=== PATIENT | female | born 1965 | race Caucasian/White ===

== ENCOUNTER 2016-09-22 18:48 | Emergency (ER) | payer MEDICAID ==
[2016-09-22] VITALS (7 sets, daily range): BP systolic 113–127; BP diastolic 61–67; PULSE 66–70; RESP 16–18; TEMP 98.9; O2SAT 98
[~2016-09-22] VITALS: Ht 170.2 cm; Wt 130.0 kg
[~2016-09-22 18:48] MED LIST: ALBU0.086 NEB; AMLO10CA PO; AMLO2.5C PO; AZIT500T2 PO; BAYE2KIT; BENZ1CAP8 PO; BLOO1KIT65; BLOOD GLUCOSE T1 TES; BUME1TAB28 PO; DICL1GEL TOPICAL; GLIP5TAB8 PO; GLUCTAB PO; GLUCTES12; HYDR-3583 PO; HYDR12.56 PO; KLOR20TA6 PO; LIDO1CRE8 TOPICAL; LYRI100C PO; METF850T PO; ONETKIT9; ONETTES4; POTA-163 PO; PRED20 PO; TRIA37.53 PO; VARE1PAK3 PO; VENTAER INH; XANA2TAB2 PO; [UNRECOGNIZED DRUG - CODE] PO; [UNRECOGNIZED DRUG - SUPPLY]
[2016-09-22] MEDS ORDERED: PANT40TA3 PO (20:23)
[2016-09-22] MEDS ORDERED: KETOROLAC TROMETHAMINE 30 MG/ML (IVP) VIAL IV PUSH ONE (20:30)
[2016-09-22] MEDS ORDERED: SODIUM CHLORIDE 0.9% FLUSH 10 ML FLUSH IVF PRN (20:30)
[2016-09-22 21:01] LABS: AUTOMATED NEUTROPHIL # 5.6 TH/MM3 (1.8-7.7); BASOPHIL % 0.5 % (0.0-2.0); EOSINOPHIL # 0.1 TH/MM3 (0-0.4); EOSINOPHIL % 1.2 % (0.0-4.0); HEMATOCRIT 42.2 % (35.0-46.0); HEMO FLAGS DIFF FINAL; LYMPH % 32.8 % (9.0-44.0); LYMPHOCYTE # 3.1 TH/MM3 (1.0-4.8); MEAN CELL VOLUME 89.5 FL (80.0-100.0); MEAN CORPUSCULAR HEMOGLOBIN 29.7 PG (27.0-34.0); MEAN CORPUSCULAR HGB CONC 33.2 % (32.0-36.0); MONO % 6.2 % (0.0-8.0); NEUT % 59.3 % (16.0-70.0); PLATELET COUNT 168 TH/MM3 (150-450); RED BLOOD COUNT 4.72 MIL/MM3 (4.00-5.30); RED CELL DISTRIBUTION WIDTH 13.1 % (11.6-17.2); WHITE BLOOD COUNT 9.4 TH/MM3 (4.0-11.0)
--- NOTE | 2016-09-22 21:10 | PD ---
HPI Chief Complaint: Back/ Neck Pain or Injury Time Seen by Provider: 20:13 Travel History International Travel<30 days: No Contact w/Intl Traveler<30days: No Traveled to known affect area: No History of Present Illness HPI 51-year-old female with history of gastric sleeve procedure earlier this year in [facility] with over 60 pounds weight loss since then, here for evaluation of left upper back pain. Patient reports bending over and doing heavy lifting at work. For the last week she has been having an ache in her left upper back between her scapula. Pain radiates to her left shoulder laterally and anteriorly. Pain is worse with movements, is mild to moderate. She denies any known history of cardiac disease. No paresthesias or motor deficits. No fevers, cough, or recent illness. PFSH Past Medical History Asthma: Yes Diabetes: Yes (PT STATES NO LONGER DIABETIC AND OFF MEDICATIONS) Patient Takes Glucophage: No Diminished Hearing: No Hypertension: Yes (PT STATES NO LONGER HYPERTENSIVE AND OFF MEDICATIONS) Medical other: Yes (NEUROPATHY) Tetanus Vaccination: > 5 Years Influenza Vaccination: Yes ?: Unknown Menopausal: Yes Past Surgical History Abdominal Surgery: Yes (GASTRIC SLEEVE 07/01/16) Social History Alcohol Use: No Tobacco Use: Yes (/2 PPD) Substance Use: No Allergies-Medications (Allergen,Severity, Reaction): Coded Allergies: No Known Allergies (Verified , 09/22/16) Reported Meds & Prescriptions Reported Meds & Active Scripts Active Robaxin (Methocarbamol) 500 Mg Tab 500 Mg PO TID Lortab (Hydrocodone-Acetaminophen) 5-325 Mg Tab 1 Tab PO Q6H PRN Lyrica (Pregabalin) 100 Mg Cap 100 Mg PO TID Reported Pantoprazole (Pantoprazole Sodium) 40 Mg Tab 40 Mg PO DAILY Review of Systems Except as stated in HPI: all other systems reviewed are Neg Physical Exam Narrative GENERAL: Well-developed, well-nourished, comfortable, no acute distress. SKIN: Focused skin assessment warm/dry. No rash. HEAD: Atraumatic. Normocephalic. EYES: Pupils equal and round. No scleral icterus. No injection or drainage. ENT: Mucous membranes pink and moist. NECK: Trachea midline. No JVD. CARDIOVASCULAR: Regular rate and rhythm. RESPIRATORY: No accessory muscle use. Clear to auscultation. Breath sounds equal bilaterally. GASTROINTESTINAL: Abdomen soft, non-tender, nondistended. Hepatic and splenic margins not palpable. MUSCULOSKELETAL: No obvious deformities. No clubbing. No cyanosis. No edema. Moderate left mid/upper back tenderness without deformity or step-off. There is no midline vertebral step-off or tenderness. NEUROLOGICAL: Awake and alert. No obvious cranial nerve deficits. Motor grossly within normal limits. Normal speech. PSYCHIATRIC: Appropriate mood and affect; insight and judgment normal. Data Data Last Documented VS Vital Signs Date Time Temp Pulse Resp B/P Pulse Ox O2 Delivery O2 Flow Rate FiO2 09/22/16 21:07 66 18 115/64 98 Room Air 09/22/16 20:05 98.9 Orders Electrocardiogram (09/22/16 20:23) Basic Metabolic Panel (Bmp) (09/22/16 20:23) Ckmb (Isoenzyme) Profile (09/22/16 20:23) Complete Blood Count With Diff (09/22/16 20:23) Prothrombin Time / Inr (Pt) (09/22/16 20:23) Act Partial Throm Time (Ptt) (09/22/16 20:23) Troponin I (09/22/16 20:23) Chest, Single Ap (09/22/16 20:23) Ecg Monitoring (09/22/16 20:23) Bilateral Bp Monitoring (09/22/16 20:23) Iv Access Insert/Monitor (09/22/16 20:23) Oximetry (09/22/16 20:23) Oxygen Administration (09/22/16 20:23) Sodium Chloride 0.9% Flush (Ns Flush) (09/22/16 20:30) Spine, Thoracic-Ap/Lat/Sw(3vw) (09/22/16 ) Ketorolac Inj (Toradol Inj) (09/22/16 20:30) Potassium Chloride Eff (K-Lyte Cl Eff) (09/22/16 22:15) Labs Laboratory Tests Test 09/22/16 20:50 White Blood Count 9.4 TH/MM3 Red Blood Count 4.72 MIL/MM3 Hemoglobin 14.0 GM/DL Hematocrit 42.2 % Mean Corpuscular Volume 89.5 FL Mean Corpuscular Hemoglobin 29.7 PG Mean Corpuscular Hemoglobin 33.2 % Concent Red Cell Distribution Width 13.1 % Platelet Count 168 TH/MM3 Mean Platelet Volume 9.6 FL Neutrophils (%) (Auto) 59.3 % Lymphocytes (%) (Auto) 32.8 % Monocytes (%) (Auto) 6.2 % Eosinophils (%) (Auto) 1.2 % Basophils (%) (Auto) 0.5 % Neutrophils # (Auto) 5.6 TH/MM3 Lymphocytes # (Auto) 3.1 TH/MM3 Monocytes # (Auto) 0.6 TH/MM3 Eosinophils # (Auto) 0.1 TH/MM3 Basophils # (Auto) 0.0 TH/MM3 CBC Comment DIFF FINAL Differential Comment Prothrombin Time 12.0 SEC Prothromb Time International 1.1 RATIO Ratio Activated Partial 28.2 SEC Thromboplast Time Sodium Level 140 MEQ/L Potassium Level 3.0 MEQ/L Chloride Level 105 MEQ/L Carbon Dioxide Level 29.2 MEQ/L Anion Gap 6 MEQ/L Blood Urea Nitrogen 13 MG/DL Creatinine 0.72 MG/DL Estimat Glomerular Filtration 85 ML/MIN Rate Random Glucose 118 MG/DL Calcium Level 8.7 MG/DL Total Creatine Kinase 92 U/L Troponin I LESS THAN 0.02 NG/ML MDM Medical Decision Making Medical Screen Exam Complete: Yes Emergency Medical Condition: Yes Interpretation(s) EKG: Sinus, rate 62, leftward axis, normal intervals, low QRS voltages in precordial leads, no acute ischemic abnormality. Differential Diagnosis Musculoskeletal pain, ACS is likely, pneumonia, PE, pneumothorax Narrative Course Vital signs reviewed and are within normal limits. CBC is unremarkable. BMP is remarkable for potassium 3.0 which was replaced orally, otherwise unremarkable. Cardiac enzymes are negative. Chest x-ray: No evidence of acute cardio pulmonary disease. Thoracic spine x-ray: CONCLUSION: Mild scoliosis and disc centered degenerative changes of the thoracic spine. No fracture or subluxation. Patient was made aware of all findings. She reported significant improvement in symptoms after receiving a dose of IV Toradol. I do not believe her symptoms are cardiac in nature. Symptoms are more consistent with musculoskeletal origin. Patient agrees with this. She states she feels significantly improved after receiving Toradol and would like to go home. She was injected follow-up with her primary care physician this week. She was informed on when to return to the emergency department. She verbalizes understanding and agreement with plan. Diagnosis Primary Impression: Back pain Qualified Code: M54.6 - Acute left-sided thoracic back pain Additional Impression: Hypokalemia Referrals: Primary Care Physician 3 days Additional Instructions: Follow-up with your primary care physician this week. Return to the emergency department for worsening symptoms or any other concerns. Scripts Methocarbamol (Robaxin)500 Mg [id number] Mg PO TID #20 TAB Ref 0 Prov:Jorge A Bernardo MD 09/22/16 Hydrocodone-Acetaminophen (Lortab)5-325 Mg Tab1 Tab PO Q6H PRN (PAIN) #12 TAB Ref 0 Prov:Jorge A Bernardo MD 09/22/16 Disposition: 01 DISCHARGE HOME Condition: Stable Jorge A Bernardo MD Sep 22, 2016 21:10
[2016-09-22 21:22] LABS: CHLORIDE 105 MEQ/L (98-107); SODIUM (NA) 140 MEQ/L (136-145)
[2016-09-22 21:25] LABS: ANION GAP 6 MEQ/L (5-15); BICARBONATE 29.2 MEQ/L (21.0-32.0); BLOOD UREA NITROGEN 13 MG/DL (7-18)
[2016-09-22 21:27] LABS: APTT (PATIENT) 28.2 SEC (24.3-30.1); INTERNATIONAL NORMALIZED RATIO 1.1 RATIO
[2016-09-22 21:28] LABS: GLOMERULAR FILTRATION RATE 85 ML/MIN (>89)
--- NOTE | 2016-09-22 21:36 | RADRPT ---
EXAM DATE/TIME: 09/22/2016 21:17 [facility] COMPARISON: CHEST SINGLE AP, November 23, 2015, 18:34. INDICATIONS : Pain. No injury. MEDICAL HISTORY : None. SURGICAL HISTORY : None. ENCOUNTER: Initial ACUITY: 4 - 6 days PAIN SCORE: 1/10 LOCATION: Bilateral chest FINDINGS: A single view of the chest demonstrates the lungs to be symmetrically aerated without evidence of mas s, infiltrate or effusion. The cardiomediastinal contours are unremarkable. Osseous structures are intact. CONCLUSION: No evidence of acute cardiopulmonary disease. Sanchez Evans MD on September 22, 2016 at 21:34 Board Certified Radiologist. This report was verified electronically.
--- NOTE | 2016-09-22 21:37 | RADRPT ---
EXAM DATE/TIME: 09/22/2016 21:20 [facility] COMPARISON: No previous studies available for comparison. INDICATIONS : Upper back pain. No injury. MEDICAL HISTORY : None. SURGICAL HISTORY : None. ENCOUNTER: Initial ACUITY: 4 - 6 days PAIN SCORE: 8/10 LOCATION: Bilateral thoracic spine. FINDINGS: There is mild dextroconvex curvature of the thoracic spine centered around T8. No fracture or subluxa tion. Vertebral bodies have normal height. Very mild disc space narrowing seen at essentially all levels. CONCLUSION: Mild scoliosis and disc centered degenerative changes of the thoracic spine. No fracture or subluxati on. Sanchez Evans MD on September 22, 2016 at 21:35 Board Certified Radiologist. This report was verified electronically.
[2016-09-22 21:41] LABS: CREATINE KINASE 92 U/L (26-192)
[2016-09-22] MEDS ORDERED: ROBA500T PO (22:08)
[2016-09-22] MEDS ORDERED: HYDR-3533 PO (22:08)
[2016-09-22] MEDS ORDERED: POTASSIUM CHLORIDE 25 MEQ EFFERVESCENT TAB PO ONE (22:15)
--- NOTE | 2016-09-23 00:17 | EKG ---
Date Performed: 09/22/2016 Time Performed: 20:33:44 PTAGE: 51 years EKG: Sinus rhythm LOW QRS VOLTAGE IN PRECORDIAL LEADS BORDERLINE ECG PREVIOUS TRACING : 11/23/2015 18.34 Compared to prior tracing no significant change DOCTOR: Jean Marie Rushing Interpretating Date/Time 09/23/2016 00:16:47
[2016-11-04] MEDS ORDERED: KETO60IN6 IM (16:38)
[2016-11-04] MEDS ORDERED: LYRI100C PO (16:46)
== END 2016-09-22 22:43 | disposition home or self-care (01) ==
LOC: PHED 18:48
DX: M54.6 Pain in thoracic spine (principal); E87.6 Hypokalemia; F17.210 Nicotine dependence, cigarettes, uncomplicated
CPT/HCPCS: 71010; 72072; 80048; 82550; 84484; 85025; 85610; 85730; 93005; 96374; 99285; J1885

== ENCOUNTER 2016-10-12 10:55 | Emergency (ER) | payer MEDICAID ==
[~2016-10-12] VITALS: Ht 170.2 cm; Wt 126.6 kg
[~2016-10-12 10:55] MED LIST changes: -ALBU0.086 NEB; -AMLO10CA PO; -AMLO2.5C PO; -AZIT500T2 PO; -BAYE2KIT; -BENZ1CAP8 PO; -BLOO1KIT65; -BLOOD GLUCOSE T1 TES; -BUME1TAB28 PO; -DICL1GEL TOPICAL; -GLIP5TAB8 PO; -GLUCTAB PO; -GLUCTES12; +HYDR-3533 PO; -HYDR-3583 PO; -HYDR12.56 PO; -KLOR20TA6 PO; -LIDO1CRE8 TOPICAL; -METF850T PO; -ONETKIT9; -ONETTES4; +PANT40TA3 PO; -POTA-163 PO; -PRED20 PO; +ROBA500T PO; -TRIA37.53 PO; -VARE1PAK3 PO; -VENTAER INH; -XANA2TAB2 PO; -[UNRECOGNIZED DRUG - CODE] PO; -[UNRECOGNIZED DRUG - SUPPLY]
[2016-10-12 11:05] VITALS: BP 154/70; PULSE 84; RESP 18; TEMP 99.3; O2SAT 95
[2016-10-12] MEDS ORDERED: MAGICPED SWISH-SWAL (12:10)
--- NOTE | 2016-10-12 12:15 | PD ---
HPI Chief Complaint: Cold / Flu Symptoms Time Seen by Provider: 12:04 Travel History International Travel<30 days: No Contact w/Intl Traveler<30days: No Traveled to known affect area: No History of Present Illness HPI 51-year-old female presents to the emergency room for evaluation of nonproductive cough, congestion, and sore throat for the past 2 days. Patient states symptoms started 4 days ago with right-sided nasal congestion but worsened yesterday. She has been taking [id number] medications without significant relief in symptoms. Denies fever, chills, nausea, and vomiting. Cough is nonproductive. Patient states she is most upset about her throat which is extremely painful when she coughs. She denies chronic medical conditions or daily medications. Had a history of diabetes and hypertension but after weight loss surgery, those improved. PFSH Past Medical History Asthma: Yes Diabetes: Yes (PT STATES NO LONGER DIABETIC AND OFF MEDICATIONS) Patient Takes Glucophage: No Diminished Hearing: No GERD: Yes Hypertension: Yes (PT STATES NO LONGER HYPERTENSIVE AND OFF MEDICATIONS) Tetanus Vaccination: Unknown Influenza Vaccination: No ?: Not Menopausal: Yes Past Surgical History Abdominal Surgery: Yes (GASTRIC SLEEVE 07/01/16) Social History Alcohol Use: No Tobacco Use: Yes (02/09 PPD) Substance Use: No Allergies-Medications (Allergen,Severity, Reaction): Coded Allergies: No Known Allergies (Verified , 10/12/16) Reported Meds & Prescriptions Reported Meds & Active Scripts Active Lyrica (Pregabalin) 100 Mg Cap 100 Mg PO TID Reported Pantoprazole (Pantoprazole Sodium) 40 Mg Tab 40 Mg PO DAILY Review of Systems Except as stated in HPI: all other systems reviewed are Neg Physical Exam Narrative GENERAL: Well-nourished, well-developed female in no acute distress. Afebrile. Ambulatory. SKIN: Focused skin assessment warm/dry. HEAD: Normocephalic. EYES: No scleral icterus. No injection or drainage. EARS: Bilateral pinnae and external canals appear within normal limits. Left ear canal is occluded with cerumen. Right tympanic membrane without erythema, dullness or perforation. ENT: Mucosa pink and moist. Moderate erythema and edema without exudates. No uvular edema. No uvular, palatal, or tonsillar deviation. Airway patent. Nasal turbinates appear normal without nasal blood, purulent drainage or septal hematoma. NECK: Supple, trachea midline. No JVD or lymphadenopathy. CARDIOVASCULAR: Regular rate and rhythm without murmurs, gallops, or rubs. RESPIRATORY: Breath sounds equal bilaterally. No accessory muscle use. No crackles, rales, wheezes, or rhonchi. Data Data Last Documented VS Vital Signs Date Time Temp Pulse Resp B/P (MAP) Pulse Ox O2 Delivery O2 Flow Rate FiO2 10/12/16 11:05 99.3 84 18 154/70 (98) 95 MDM Medical Decision Making Medical Screen Exam Complete: Yes Emergency Medical Condition: Yes Medical Record Reviewed: Yes Differential Diagnosis Bronchitis, upper respiratory infection, pneumonia unlikely Narrative Course 51-year-old female presents to the emergency room for evaluation of nonproductive cough, congestion, and sore throat for the past 2 days. Patient states postnasal drip causing her throat hurts especially when she coughs. She is afebrile and well-appearing in the emergency room. Vital signs stable. Resting comfortably in bed with no increased work of breathing. Lungs sounds clear and equal bilaterally. No evidence of bacterial infection in the ears. Throat is moderately erythematous and edematous without exudate. Patient was offered rapid strep test but declined because of time constraints. She has had no fever and with postnasal drip, strep is unlikely. This is viral upper respiratory infection. Patient discharged with prescription for Magic mouthwash and told to follow up with a primary care physician or return for worsening symptoms. No indication for antibiotics. She understands and agrees to plan. Diagnosis Primary Impression: Upper respiratory infection Qualified Codes: J00 - Acute nasopharyngitis [common cold] Referrals: Primary Care Physician Additional Instructions: Rest and drink plenty of fluids. Use Magic mouthwash as directed, as needed for pain. Take ibuprofen with food as directed, as needed for pain. Follow-up with a primary care physician. Return to the emergency room for worsening symptoms. Med/Other Pt SpecificInfo: Prescription(s) given Scripts Brdmleezuvkmqkf-Tuctorcbs-Ius-Alum-Simeth Liq (Magic Mouthwash Pediatric/Adult Liq) 60 Ml Susp 5 ML SWISH-SWAL ACHS for Mouth sores, #60 ML 0 Refills Each 5mL contains: Diphenydramine 4.5mg, Viscous Lidocaine 2% 10mg, Maalox Advanced Regular Strength 2.7ml Prov: Anna Archer MD 10/12/16 Disposition: 01 DISCHARGE HOME Condition: Stable Shu Chakraborty Oct 12, 2016 12:15
[2016-11-04] MEDS ORDERED: KETO60IN6 IM (16:38)
[2016-11-04] MEDS ORDERED: LYRI100C PO (16:46)
== END 2016-10-12 12:34 | disposition home or self-care (01) ==
LOC: PHEFT 10:55
DX: J00 Acute nasopharyngitis [common cold] (principal); R05 Cough; F17.200 Nicotine dependence, unspecified, uncomplicated; Z87.09 Personal history of other diseases of the respiratory system; Z87.19 Personal history of other diseases of the digestive system
CPT/HCPCS: 99283

== ENCOUNTER 2016-11-21 00:13 | Emergency (ER) | payer MEDICAID ==
[~2016-11-21] VITALS: Ht 170.2 cm; Wt 121.2 kg
[~2016-11-21 00:13] MED LIST changes: -HYDR-3533 PO; +MAGICPED SWISH-SWAL; -ROBA500T PO
[2016-11-21 00:25] VITALS: BP 144/84; PULSE 75; RESP 16; TEMP 99.1; O2SAT 98
[2016-11-21] MEDS ORDERED: KETOROLAC TROMETHAMINE 60 MG/2 ML (IM) VIAL IM ONE (01:15)
--- NOTE | 2016-11-21 01:36 | RADRPT ---
EXAM DATE/TIME: 11/21/2016 01:24 [facility] COMPARISON: No previous studies available for comparison. INDICATIONS : Right knee pain. No known injury. MEDICAL HISTORY : None. SURGICAL HISTORY : None. ENCOUNTER: Initial ACUITY: 1 week PAIN SCORE: 8/10 LOCATION: Right knee FINDINGS: The knee joint is aligned. There is narrowing of the medial joint space. There is hypertrophic change of the medial tibial plateau. There is a moderate joint effusion. No fracture is seen. CONCLUSION: Joint space narrowing seen medially and a moderate effusion. Sanchez Lyn MD on November 21, 2016 at 1:33 Board Certified Radiologist. This report was verified electronically.
[2016-11-21 02:55] VITALS: BP 115/74; PULSE 62; RESP 14; O2SAT 96
[2016-11-21] MEDS ORDERED: IBUP-232 PO (03:07)
--- NOTE | 2016-11-21 03:07 | PD ---
HPI Chief Complaint: Pain: Acute or Chronic Time Seen by Provider: 01:04 Travel History International Travel<30 days: No Contact w/Intl Traveler<30days: No Traveled to known affect area: No History of Present Illness HPI 51yo F with c/o right knee pain for 1 week. Said she went to her PMD for this and was told to do ice and knee immobilizer. Pain is mainly in medial aspect and pt has a history of arthritis. She had a gastric bypass and lose a lot of weight. Denies any fever, chest pain, sob, n/v, abdominal pain, focal weakness or numbness or trauma. PFSH Past Medical History Arthritis: Yes Asthma: Yes Blood Disorders: No Heart Rhythm Problems: No Cardiovascular Problems: Yes High Cholesterol: No Chest Pain: No Congestive Heart Failure: No Diabetes: Yes (PT STATES NO LONGER DIABETIC AND OFF MEDICATIONS) Patient Takes Glucophage: No Diminished Hearing: No Endocrine: Yes GERD: Yes Genitourinary: No Hypertension: Yes (PT STATES NO LONGER HYPERTENSIVE AND OFF MEDICATIONS) Musculoskeletal: No Neurologic: No Psychiatric: No Respiratory: No Myocardial Infarction: No Tetanus Vaccination: Unknown Influenza Vaccination: No ?: Not Menopausal: Yes : 1 Para: 1 Past Surgical History Abdominal Surgery: Yes (GASTRIC SLEEVE 07/01/16) AICD: No Gynecologic Surgery: Yes (CERVICAL CA REMOVED) Joint Replacement: No Pacemaker: No Social History Alcohol Use: No Tobacco Use: Yes (1/2 PPD) Substance Use: No Allergies-Medications (Allergen,Severity, Reaction): Coded Allergies: No Known Allergies (Verified , 11/21/16) Reported Meds & Prescriptions Reported Meds & Active Scripts Active Lyrica (Pregabalin) 100 Mg Cap 100 Mg PO TID Reported Pantoprazole (Pantoprazole Sodium) 40 Mg Tab 40 Mg PO DAILY Review of Systems Except as stated in HPI: all other systems reviewed are Neg Physical Exam Narrative GENERAL: 51yo F in mild distress. SKIN: Focused skin assessment warm/dry. HEAD: Atraumatic. Normocephalic. CARDIOVASCULAR: Regular rate and rhythm. No murmur appreciated. RESPIRATORY: No accessory muscle use. Clear to auscultation. Breath sounds equal bilaterally. GASTROINTESTINAL: Abdomen soft, non-tender, nondistended. MUSCULOSKELETAL: Right knee: +TTP medial aspect. Mild swelling. No erythema. Able to flex and extend fully. DP 1+. sensation intact. NEUROLOGICAL: Awake and alert. No obvious cranial nerve deficits. Motor grossly within normal limits. Normal speech. PSYCHIATRIC: Appropriate mood and affect; insight and judgment normal. Data Data Last Documented VS Vital Signs Date Time Temp Pulse Resp B/P (MAP) Pulse Ox O2 Delivery O2 Flow Rate FiO2 11/21/16 02:50 14 11/21/16 01:30 74 11/21/16 00:25 99.1 144/84 (104) 98 Orders Orders Knee, Ltd (1 Or 2vws) (11/21/16 ) Ketorolac Inj (Toradol Inj) (11/21/16 01:15) MDM Medical Decision Making Medical Screen Exam Complete: Yes Emergency Medical Condition: Yes Differential Diagnosis Osteoarthritis vs. gout Narrative Course 51yo F with history of right knee arthritis here with right knee pain. No fever or trauma. No neurologic symptoms. Pt given toradol IM with helped with pain. Xray right knee showed joint space narrowing seen medially and a moderate effusion. Discussed with pt orthopedic follow up if pain persists. Return precautions given. Diagnosis Primary Impression: Right knee pain Qualified Codes: M25.561 - Pain in right knee Referrals: Mirza Duque Jr., MD as needed Patient Instructions: General Instructions Departure Forms: Tests/Procedures Additional Instructions: Please follow up with orthopedic surgery if pain persists. Return to the ED if symptoms worsen. Med/Other Pt SpecificInfo: Prescription(s) given Scripts Ibuprofen (Ibuprofen) 600 Mg Tab 600 MG PO Q8H Y for PAIN, #20 TAB 0 Refills Prov: Yue Ocasio 11/21/16 Disposition: 01 DISCHARGE HOME Condition: Stable OcasioYue DO Nov 21, 2016 03:07
== END 2016-11-21 03:16 | disposition home or self-care (01) ==
LOC: PHED 00:13
DX: M25.561 Pain in right knee (principal); M17.11 Unilateral primary osteoarthritis, right knee; F17.210 Nicotine dependence, cigarettes, uncomplicated
CPT/HCPCS: 73560; 96372; 99284; J1885

== ENCOUNTER 2017-05-17 09:46 | Emergency (ER) | payer MEDICAID ==
[~2017-05-17] VITALS: Ht 170.2 cm; Wt 107.2 kg
[~2017-05-17 09:46] MED LIST changes: +CARPAL TUNNEL W1 MIS; +FLUT1SPR5 EACH NARE; +HYDR2.5O TOPICAL; +IBUP-232 PO; -MAGICPED SWISH-SWAL; +TRIA0.1L TOPICAL; +[UNRECOGNIZED DRUG - OTHER]
[2017-05-17 09:50] VITALS: BP 168/82; PULSE 72; RESP 16; TEMP 98.7; O2SAT 97
--- NOTE | 2017-05-17 11:06 | PD ---
HPI Chief Complaint: Musculoskeletal Complaint Time Seen by Provider: 10:43 Travel History International Travel<30 days: No Contact w/Intl Traveler<30days: No Traveled to known affect area: No History of Present Illness HPI 52-year-old female with history of arthritis presents to the emergency room for evaluation of left knee pain for the past 5 days. Patient states she was moving heavy furniture and heard a loud pop on her left knee. Pain is localized to the left lateral portion. States she felt muscle tightness in the posterior aspect. Pain is severe, worse with ambulation or certain range of motion. She has history of surgical meniscal repair in March and states this feels the same. She called her orthopedic surgeon, Dr. Toussaint, who recommended she come to the emergency room for an x-ray and he will see her in his office sometime this week. Patient takes ibuprofen daily for her right knee and took some this morning but it does not seem to help. She denies paresthesias. Patient also complains of abscess to her right Second finger that has been there for the past few days. She tried to stick a needle in it without any drainage. Denies any fevers. PFSH Past Medical History Arthritis: Yes Asthma: Yes Blood Disorders: No Heart Rhythm Problems: No Cardiovascular Problems: Yes (hx of htn no meds, control by weight loss) High Cholesterol: No Chest Pain: No Congestive Heart Failure: No Diabetes: Yes (hx of diabetic but diet control) Patient Takes Glucophage: No Diminished Hearing: No Endocrine: Yes Gastrointestinal Disorders: No GERD: Yes Genitourinary: No Hypertension: Yes (PT STATES NO LONGER HYPERTENSIVE AND OFF MEDICATIONS) Musculoskeletal: No Neurologic: No Psychiatric: No Respiratory: No Myocardial Infarction: No ?: Not Menopausal: Yes : 1 Para: 1 Past Surgical History Abdominal Surgery: Yes (GASTRIC SLEEVE 07/01/16) AICD: No Gynecologic Surgery: Yes (CERVICAL CA REMOVED) Joint Replacement: No Pacemaker: No Social History Alcohol Use: No Tobacco Use: Yes (2 PPD) Substance Use: No Allergies-Medications (Allergen,Severity, Reaction): Coded Allergies: No Known Allergies (Verified Adverse Reaction, Unknown, 05/17/17) Reported Meds & Prescriptions Reported Meds & Active Scripts Active Bactrim DS (Sulfamethoxazole-Trimethoprim) 800-160 Mg Tab 1 Tab PO BID Ibuprofen 600 Mg Tab 600 Mg PO Q6H PRN Lyrica (Pregabalin) 100 Mg Cap 100 Mg PO TID Carpal Tunnel Wrist Stabizer 1 Mis Mis Ea .ROUTE DIRECTED Wear at night while sleeping Knee Brace/Hinged L/XL 1 Mis Mis Ea .ROUTE DIRECTED Ibuprofen 600 Mg Tab 600 Mg PO Q8H PRN Review of Systems Except as stated in HPI: all other systems reviewed are Neg Physical Exam Narrative GENERAL: Well-nourished, well-developed female in no acute distress. Afebrile. Ambulatory. SKIN: Focused skin assessment warm/dry. No erythema or ecchymosis. There is an indurated area in the right second finger at the proximal phalanx which measures about 1 cm in diameter. It is fluctuant but there is no pointing or drainage. There is a zone of inflammation around it but no lymphangitis. HEAD: Normocephalic. EYES: No scleral icterus. No injection or drainage. NECK: Supple, trachea midline. No JVD or lymphadenopathy. CARDIOVASCULAR: Regular rate and rhythm without murmurs, gallops, or rubs. RESPIRATORY: Breath sounds equal bilaterally. No accessory muscle use. MUSCULOSKELETAL: No cyanosis. Mild edema of the left knee. Tenderness to palpation over the left lateral aspect. 2+ dorsalis pedis pulse. Patient has full range of motion. No calf tenderness. Negative Homans sign. Data Data Last Documented VS Vital Signs Date Time Temp Pulse Resp B/P (MAP) Pulse Ox O2 Delivery O2 Flow Rate FiO2 05/17/17 09:50 98.7 72 16 168/82 (110) 97 Orders Orders Knee, Complete (4vws) (05/17/17 ) Ed Discharge Order (05/17/17 11:47) Ketorolac Inj (Toradol Inj) (05/17/17 12:00) [place] Bandage (05/17/17 11:47) Ranitidine Liq (Zantac Liq) (05/17/17 12:00) [facility] Medical Decision Making Medical Screen Exam Complete: Yes Emergency Medical Condition: Yes Medical Record Reviewed: Yes Differential Diagnosis Internal derangement, strain, fracture, sprain, dislocation, Rojas's cyst, bursitis, arthritis Narrative Course 52-year-old female with history of arthritis presents to the emergency room for evaluation of left knee pain for the past week. Patient does report feeling crack while moving furniture at onset of symptoms. Since then she has had severe pain with ambulation. She has history of arthritis in the knee. She called her orthopedist recommended she come to the emergency room for x-ray. Patient also complains of abscess to the right second finger. Physical exam reveals a small abscess about 1 cm in diameter. It is very localized with no spontaneous drainage. Abscess was poked with a scalpel and significant purulent drainage was relieved. Patient will be discharged with Bactrim. Left lower extremity is neurovascularly intact with 2+ dorsalis pedis pulse. She has full range of motion no specific bony tenderness to palpation. X-ray shows severe osteoarthritis. She was given Toradol in an [place] wrap in the emergency room. Told to follow-up with her orthopedist which she has plans to do this week. She will return for worsening symptoms or as needed. She understands and agrees to plan. Procedures Procedure Narrative INCISION AND DRAINAGE OF ABSCESS: The area was prepped and was sterilely draped. A number 11 scalpel was used to make a3 mm incision across the area of the abscess. The abscess was drained, complex loculations were broken down. Dressing applied. Diagnosis Primary Impression: Osteoarthritis of knee Qualified Codes: M17.12 - Unilateral primary osteoarthritis, left knee Additional Impression: Abscess of finger Qualified Codes: L02.511 - Cutaneous abscess of right hand Referrals: Orthopaedic Surgeon Additional Instructions: Rest and drink plenty of fluids. Use [place] wrap as needed for pain. Take ibuprofen with food as directed, as needed for pain. Apply ice to the affected area for 20 minutes at a time, as needed for pain and swelling. Follow-up with surgeon as planned. Return to the emergency room for worsening symptoms. Scripts Sulfamethoxazole-Trimethoprim (Bactrim DS) 800-160 Mg Tab 1 TAB PO BID for Infection, #14 TAB 0 Refills Prov: Víctor Pizarro MD 05/17/17 Disposition: 01 DISCHARGE HOME Condition: Stable Shu Chakraborty May 17, 2017 11:06
--- NOTE | 2017-05-17 11:40 | RADRPT ---
EXAM DATE/TIME: 05/17/2017 11:01 [facility] COMPARISON: No previous studies available for comparison. INDICATIONS : Left knee pain for one week, [place] popping sound. MEDICAL HISTORY : Arthritis SURGICAL HISTORY : ENCOUNTER: Initial ACUITY: 1 week PAIN SCORE: 8/10 LOCATION: Left Knee FINDINGS: Severe osteoarthritis is noted involving the medial femoral tibial joint. Moderate osteoarthritis is noted involving the patellofemoral joint. No acute fracture or dislocation is noted. CONCLUSION: 1. Severe osteoarthritis involving the medial femoral tibial joint and moderate osteoarthritis involv ing the patellofemoral joint. 2. No acute fracture or dislocation. Salvador Bauer MD on May 17, 2017 at 11:32 Board Certified Radiologist. This report was verified electronically.
[2017-05-17] MEDS ORDERED: BACT800T5 PO (11:57)
[2017-05-17] MEDS ORDERED: RANITIDINE HCL SYRUP 150 MG/10 ML UDC PO ONE (12:00)
[2017-05-17] MEDS ORDERED: KETOROLAC TROMETHAMINE 60 MG/2 ML (IM) VIAL IM ONE (12:00)
[2017-05-17] MEDS ORDERED: FAMOTIDINE 20 MG TAB PO ONE (13:00)
== END 2017-05-17 12:17 | disposition home or self-care (01) ==
LOC: PHEFT 09:46
DX: M17.12 Unilateral primary osteoarthritis, left knee (principal); L02.511 Cutaneous abscess of right hand; J45.909 Unspecified asthma, uncomplicated; I10 Essential (primary) hypertension; E11.9 Type 2 diabetes mellitus without complications; K21.9 Gastro-esophageal reflux disease without esophagitis; F17.200 Nicotine dependence, unspecified, uncomplicated; Z85.41 Personal history of malignant neoplasm of cervix uteri
CPT/HCPCS: 10060; 73564; 96372; 99283; J1885